=== PATIENT | male | born 1975 | race African-American/Black ===

== ENCOUNTER 2017-04-20 22:38 | Emergency (ER) | payer MEDICAID ==
[~2017-04-20] VITALS: Ht 188 cm; Wt 101.0 kg
[2017-04-20] MEDS ORDERED: ALBU8.5H3 INH (22:58)
[2017-04-20] MEDS ORDERED: LORazepam 2 MG/ML, 1ML IM ONE (23:00)
[2017-04-20] MEDS ORDERED: LORazepam 2 MG/ML, 1ML ONE (23:17)
[2017-04-21 01:32] VITALS: BP 146/99
== END 2017-04-21 01:42 | disposition home or self-care (01) ==
LOC: ED 23:34
DX: F15.10 Other stimulant abuse, uncomplicated (principal); F17.210 Nicotine dependence, cigarettes, uncomplicated
CPT/HCPCS: 99283